=== PATIENT | female | born 1995 | race Caucasian/White ===

== ENCOUNTER 2017-02-10 08:00 | Outpatient (CLI) | payer MEDICAID | END 2017-02-10 08:01 | disposition home or self-care (01) | LOC: LAB.R 08:00 | PROVIDERS: ATTEND Podiatrist | DX: L03.032 Cellulitis of left toe (principal) | CPT/HCPCS: 87070; 87077; 87205 ==

== ENCOUNTER 2017-09-17 09:02 | Emergency (ER) | payer MEDICAID ==
[2017-09-17] MEDS ORDERED: IBUPROFEN 400 MG TABLET PO STA (09:20)
[2017-09-17] MEDS ORDERED: ACETAMINOPHEN 325 MG TABLET PO STA (09:20)
--- NOTE | 2017-09-17 09:21 | ED Physician Documentation ---
History of Present Illness - Stated complaint Stated Complaint: LT FT INJURY - Chief complaint Chief Complaint: Ext Problem - Additonal information Additional information: 21 f stepped off curb rolled ankle last night pain to medial L ankle cannot bear wt no other injury denies preg Review of Systems : denies: Now EGA Musculoskeletal: reports: Pain with weight bearing PD PAST MEDICAL HISTORY - Present Medications Home Medications: Ambulatory Orders Medication Instructions Recorded Confirmed Citalopram [CeleXA] 09/17/17 Norgestimate-Ethinyl Estradiol 09/17/17 [Tri-Sprintec Tablet] - Allergies Allergies/Adverse Reactions: Allergies Allergy/AdvReac Type Severity Reaction Status Date / Time No Known Drug Allergies Allergy Verified 09/17/17 09:07 PD ED PE NORMAL - Vitals Vital signs reviewed: Yes - Extremities Extremities: Other (LLE - no defmormity, prox tib fib NT, TTP medial mall and deltoid lig area, no mid foot TTP, + pule, MSV intact) Results - Vitals Vitals: Vital Signs - 24 hr 09/17/17 09:04 Temperature 36.3 C L Heart Rate 80 Respiratory 18 Rate Blood Pressure 131/78 H O2 Saturation 99 Oxygen O2 Source Room air - Rads (name of study) ankle Radiology: See rad report (normal) Departure - Departure Disposition: 01 Home, Self Care Clinical Impression: Medial ankle sprain Qualifiers: Encounter type: initial encounter Laterality: left Qualified Code(s): S93.422A - Sprain of deltoid ligament of left ankle, initial encounter Condition: Good Instructions: ED Sprain Ankle W X Ray Follow-Up: Marvin Baxter MD [Primary Care Provider] - Comments: Thankfully the xray does not show any fracture Recommend ice elevation and the HEMAL wrap to decrease any swelling Motrin and tylenol for the pain Use the crutches - no weight bearing - for a week. Then may advance weight bearing as tolerated. If the ankle is still to painful to bear weight in two weeks, please see your PMD for a recheck and perhaps further imaging (occasionally a hairline crack cannot be seen on initial xrays but will become more apparent on xray as it heals) Forms: Activity restrictions
--- NOTE | 2017-09-17 09:45 | XRAY Report ---
EXAM: LEFT ANKLE RADIOGRAPHY 3 VIEWS EXAM DATE: 09/17/2017. CLINICAL HISTORY: Pain. Denies injury. COMPARISON: AP, oblique and lateral. TECHNIQUE: 3 views. FINDINGS: Bones: Normal. No fractures or bone lesions. Joints: Normal. No effusion. No subluxations. The ankle mortise is normally aligned. Soft Tissues: Normal. No soft tissue swelling. IMPRESSION: Normal left ankle radiography. [facility] Referring Provider Line: [phone] SITE ID: [id number]
[2017-09-17 10:22] VITALS: BP 122/63
== END 2017-09-17 10:20 | disposition home or self-care (01) ==
LOC: ED 09:02
DX: S93.422A Sprain of deltoid ligament of left ankle, initial encounter (principal); X50.9XXA Other and unspecified overexertion or strenuous movements or postures, initial encounter; Y92.410 Unspecified street and highway as the place of occurrence of the external cause
CPT/HCPCS: 73610; 99283; A9270

== ENCOUNTER 2018-05-17 08:50 | Outpatient (CLI) | payer MEDICAID ==
[2018-05-17 11:27] LABS: THYROID STIMULATING HORMONE 1.98 uIU/mL (0.34-5.60)
[2018-05-17 11:29] LABS: FREE T4 (FREE THYROXINE) 0.69 ng/dL (0.58-1.64)
== END 2018-05-17 08:51 | disposition home or self-care (01) ==
LOC: LAB.F 08:50
PROVIDERS: ATTEND Physician Assistant Medical
DX: R23.2 Flushing (principal); R00.2 Palpitations; R94.6 Abnormal results of thyroid function studies; F41.9 Anxiety disorder, unspecified
CPT/HCPCS: 36415; 81599; 84439; 84443; 84480; 84481; 86376; 86800

== ENCOUNTER 2018-05-24 14:08 | Outpatient (CLI) | payer MEDICAID ==
[2018-05-26 17:41] LABS: THYROGLOBULIN 25.1 ng/mL
== END 2018-05-24 14:09 | disposition home or self-care (01) ==
LOC: LAB.F 14:08
PROVIDERS: ATTEND Physician Assistant Medical
DX: R94.6 Abnormal results of thyroid function studies (principal)
CPT/HCPCS: 36415; 84432; 86800

== ENCOUNTER 2018-06-28 11:16 | Outpatient (CLI) | payer MEDICAID ==
--- NOTE | 2018-06-28 14:57 | Ultrasound Report ---
Reason: ABNORMAL THYROID HORMONE,FLUSHING,PALPITATIONS Procedure Date: 06/28/2018 Accession Number: [id number] / [id number] Procedure: US - Head or Neck Soft Tissue CPT Code: FULL RESULT: EXAM: THYROID ULTRASOUND EXAM DATE: 06/28/2018 12:03 PM. CLINICAL HISTORY: Abnormal thyroid hormone, flushing, palpitations. COMPARISON: None. TECHNIQUE: Real time sonographic imaging of the thyroid was performed by the shell plater. Multiple plastic products sales representative static images were saved for review. FINDINGS: THYROID GLAND: Right Lobe: 1.9 x 1.4 x 4.5 cm, volume 6.2 cc. Normal background echotexture. Right Lobe Nodules: A small isoechoic nodule measuring up to 0.5 cm and a small partially cystic, partially solid nodule measuring up to 0.5 cm are noted. Left Lobe: 1.2 x 1.6 x 5.2 cm, volume 5.2 cc. Normal background echotexture. Left Lobe Nodules: 0.4 cm partially cystic, partially solid nodule is noted. Isthmus: 0.4 cm AP. Isthmic Nodules: None. LYMPH NODES: No adenopathy demonstrated in the central or lateral compartment. OTHER: None. IMPRESSION: Benign-appearing nodules measuring 0.5 cm or less. These nodules do not meet criteria for tissue sampling. Background thyroid parenchyma appears unremarkable. Management recommendations are based on 2015 [place] [employer] Management Guidelines for Adult Patients with Thyroid Nodules and Differentiated Thyroid Cancer. [facility]
== END 2018-06-28 11:17 | disposition home or self-care (01) ==
LOC: DI 11:16
PROVIDERS: ATTEND Physician Assistant Medical
DX: E04.2 Nontoxic multinodular goiter (principal)
CPT/HCPCS: 76536

== ENCOUNTER 2018-08-30 19:45 | Outpatient (CLI) | payer MEDICAID ==
--- NOTE | 2018-08-30 23:37 | Ultrasound Report ---
Reason: PELVIC PAIN Procedure Date: 08/30/2018 Accession Number: [id number] / [id number] Procedure: US - Pelvic w/Transvaginal CPT Code: FULL RESULT: EXAM: PELVIC ULTRASOUND EXAM DATE: 08/30/2018 08:13 PM. CLINICAL HISTORY: PELVIC PAIN. COMPARISON: None. TECHNIQUE: Realtime transabdominal pelvic scan performed to identify the uterus and adnexa and as an overview of other pelvic structures, followed by transvaginal scan to provide greater detail of the uterus and adnexa, with static image documentation. FINDINGS: Uterus: 8.4 x 4.9 x 3.6 cm, volume 77.5 cc. Retroverted position. Normal overall size and echotexture. Masses: None. Endometrium: 10 mm. No focal endometrial abnormalities Cervix: Unremarkable. Right Ovary: 2.5 x 1.2 x 2.4 cm, volume 3.8 cc. Normal echotexture and blood flow. Left Ovary: Simple appearing left adnexal 5.4 cm cyst is present, likely benign. Left ovary not definitively visualized. Free Fluid: None. Other: None. IMPRESSION: No acute sonographic abnormalities. [facility]
== END 2018-08-30 19:46 | disposition home or self-care (01) ==
LOC: DI 19:45
PROVIDERS: ATTEND Nurse Practitioner Obstetrics & Gynecology
DX: R10.2 Pelvic and perineal pain (principal)
CPT/HCPCS: 76830; 76856

== ENCOUNTER 2018-09-11 08:00 | Outpatient (CLI) | payer MEDICAID ==
[2018-09-11 18:32] LABS: HGB - HEMOGLOBIN 12.6 g/dL (12.0-16.0); MEAN CORPUSCULAR HGB CONC 32.7 g/dL (32.0-36.0); MEAN CORPUSCULAR VOLUME 91.7 fL (81.0-99.0); RED BLOOD COUNT 4.2 10^6/uL (4.20-5.40); RED CELL DISTRIBUTION WIDTH 13.6 % (12.0-15.0); WHITE BLOOD COUNT 8.2 x10^3/uL (4.8-10.8)
== END 2018-09-11 23:59 | disposition home or self-care (01) ==
LOC: LAB.N 08:00
PROVIDERS: ATTEND Nurse Practitioner Obstetrics & Gynecology
DX: R42 Dizziness and giddiness (principal)
CPT/HCPCS: 36415; 85025; 85027

== ENCOUNTER 2018-10-04 10:49 | Outpatient (CLI) | payer MEDICAID ==
--- NOTE | 2018-10-04 16:19 | XRAY Report ---
Reason: PAIN IN LEFT HAND Procedure Date: 10/04/2018 Accession Number: [id number] / [id number] Procedure: XR - Hand 2 View LT CPT Code: FULL RESULT: EXAM: LEFT HAND RADIOGRAPHY EXAM DATE: 10/04/2018 11:08 AM. CLINICAL HISTORY: PAIN IN LEFT HAND. COMPARISON: None. TECHNIQUE: 2 views. FINDINGS: Bones: No fractures or bone lesions. Joints: No subluxations. Soft Tissues: No soft tissue swelling. IMPRESSION: Normal left hand radiography. [facility]
== END 2018-10-04 10:50 | disposition home or self-care (01) ==
LOC: DI 10:49
PROVIDERS: ATTEND Internal Medicine
DX: M79.642 Pain in left hand (principal)

== ENCOUNTER 2018-10-11 10:24 | Outpatient (CLI) | payer MEDICAID | END 2018-10-11 10:25 | disposition home or self-care (01) | LOC: SC 10:24 | PROVIDERS: ATTEND Nurse Practitioner Family | DX: G47.10 Hypersomnia, unspecified (principal); G47.8 Other sleep disorders; R06.83 Snoring; R41.89 Other symptoms and signs involving cognitive functions and awareness; E66.9 Obesity, unspecified; Z68.38 Body mass index [BMI] 38.0-38.9, adult | CPT/HCPCS: 99203; 99212 ==

== ENCOUNTER 2018-10-25 19:30 | Outpatient (CLI) | payer MEDICAID | END 2018-10-25 23:59 | disposition home or self-care (01) | LOC: SC 19:30 | PROVIDERS: ATTEND Internal Medicine Pulmonary Disease | DX: G47.8 Other sleep disorders (principal) | CPT/HCPCS: 95806 ==

== ENCOUNTER 2018-11-22 13:56 | Outpatient (CLI) | payer MEDICAID | END 2018-11-22 13:57 | disposition home or self-care (01) | LOC: SC 13:56 | PROVIDERS: ATTEND Nurse Practitioner Family | DX: G47.10 Hypersomnia, unspecified (principal); F51.5 Nightmare disorder; R53.83 Other fatigue; F41.9 Anxiety disorder, unspecified | CPT/HCPCS: 99212; 99215 ==

== ENCOUNTER 2018-11-30 20:49 | Outpatient (CLI) | payer MEDICAID ==
--- NOTE | 2018-11-30 23:27 | Ultrasound Report ---
Reason: PELVIC PAIN Procedure Date: 11/30/2018 Accession Number: [id number] / [id number] Procedure: US - Pelvic w/Transvaginal CPT Code: FULL RESULT: EXAM: PELVIC ULTRASOUND EXAM DATE: 11/30/2018 09:21 PM. CLINICAL HISTORY: PELVIC PAIN. COMPARISON: PELVIC W/TRANSVAGINAL 08/30/2018 7:48 PM. TECHNIQUE: Realtime transabdominal pelvic scan performed to identify the uterus and adnexa and as an overview of other pelvic structures, followed by transvaginal scan to provide greater detail of the uterus and adnexa, with static image documentation. FINDINGS: Uterus: 7.8 x 5.6 x 3.5 cm, volume 80 cc. Anteverted position. Normal overall size and echotexture. Masses: None. Endometrium: 8 mm. Normal. Cervix: Unremarkable. Right Ovary: 3.2 x 2.2 x 2.2 cm, volume 8 cc. Normal echotexture and blood flow. Left Ovary: 1.5 x 1.4 x 1.2 cm, volume 1 cc. Normal echotexture and blood flow. Free Fluid: None. Other: None. IMPRESSION: Normal pelvic ultrasound. No sonographic evidence of polycystic ovaries. [facility]
== END 2018-11-30 20:50 | disposition home or self-care (01) ==
LOC: DI 20:49
PROVIDERS: ATTEND Nurse Practitioner Obstetrics & Gynecology
DX: R10.2 Pelvic and perineal pain (principal)
CPT/HCPCS: 76830; 76856

== ENCOUNTER 2019-05-07 17:45 | Emergency (ER) | payer MEDICAID ==
[2019-05-07 17:53] VITALS: BP 126/79
[2019-05-07] MEDS ORDERED: CYCLOBENZAPRINE 10 MG TABLET PO STA (18:09)
[2019-05-07] MEDS ORDERED: KETOROLAC 60 MG/2 ML VIAL IM STA (18:09)
--- NOTE | 2019-05-07 18:11 | ED Physician Documentation ---
History of Present Illness - Stated complaint Stated Complaint: LT SHOULDER PX - Chief complaint Chief Complaint: Ext Problem - History obtained from History obtained from: Patient - History of Present Illness Timing: Today Pain level max: 7 Pain level now: 6 Improved by: rest Worsened by: movement - Additonal information Additional information: L shoulder pain. no injury. worse with movement and better with rest. works retail and food and beverage associate. took motrin last night without relief. no meds today. no trauma. no numbness or tingling. Review of Systems Constitutional: denies: Fever, Chills Respiratory: denies: Cough GI: denies: Vomiting : denies: Now EGA Skin: denies: Rash Musculoskeletal: denies: Neck pain, Back pain Neurologic: denies: Headache PD PAST MEDICAL HISTORY - Past Medical History Past Medical History: Yes Psych: Anxiety, ADD/ADHD - Past Surgical History Past Surgical History: No - Present Medications Home Medications: Ambulatory Orders Medication Instructions Recorded Confirmed Citalopram [CeleXA] 09/17/17 Norgestimate-Ethinyl Estradiol 09/17/17 [Tri-Sprintec Tablet] Cyclobenzaprine [Flexeril] 10 mg PO TID PRN #20 tablet 05/07/19 Meloxicam [Mobic] 15 mg PO DAILY PRN #20 tablet 05/07/19 - Allergies Allergies/Adverse Reactions: Allergies Allergy/AdvReac Type Severity Reaction Status Date / Time No Known Drug Allergies Allergy Verified 09/17/17 09:07 - Social History Does the pt smoke?: No Smoking Status: Never smoker Does the pt drink ETOH?: No Does the pt have substance abuse?: No - Immunizations Immunizations are current?: Yes PD ED PE NORMAL - Vitals Vital signs reviewed: Yes - General General: Alert and oriented X 3, No acute distress, Well developed/nourished - HEENT HEENT: Moist mucous membranes - Neck Neck: Supple, no meningeal sign - Cardiac Cardiac: RRR, Strong equal pulses - Respiratory Respiratory: No respiratory distress, Clear bilaterally - Abdomen Abdomen: Soft, Non tender, Non distended - Back Back: No CVA TTP, No spinal TTP - Derm Derm: Warm and dry - Extremities Extremities: Other (Tender to palpation over the left trapezial ridge. Negative Spurling test. Normal shoulder examination. Full range of motion of the shoulder, passively without pain. Neurovascular intact including axillary nerve.) - Neuro Neuro: Alert and oriented X 3 - Psych Psych: Normal mood, Normal affect Results - Vitals Vitals: Vital Signs - 24 hr 05/07/19 17:52 Temperature 36.5 C Heart Rate 86 Respiratory 18 Rate Blood Pressure 126/79 O2 Saturation 100 Oxygen O2 Source Room air - Rads (name of study) L shoulder xray Radiology: Prelim report reviewed, EMP read contemporaneously, See rad report PD MEDICAL DECISION MAKING - ED course Complexity details: reviewed results, re-evaluated patient, considered differential, d/w patient ED course: Patient with a left trapezius muscle spasm. No acute findings on shoulder x- ray. Pain well controlled here. We will follow-up with her doctor for further care. Will place on muscle relaxants and anti-inflammatories for home. Encourage gentle stretching. Patient counseled regarding signs and symptoms for which I believe and urgent re-evaluation would be necessary. Patient with good understanding of and agreement to plan and is comfortable going home at this time This document was made in part using voice recognition software. While efforts are made to proofread this document, sound alike and grammatical errors may occur. Departure - Departure Disposition: 01 Home, Self Care Clinical Impression: Trapezius muscle spasm Condition: Good Instructions: ED Spasm Muscle Follow-Up: Apolonia Diana PA-C [Primary Care Provider] - Within 1 week Prescriptions: Cyclobenzaprine [Flexeril] 10 mg PO TID PRN #20 tablet PRN Reason: Spasms Meloxicam [Mobic] 15 mg PO DAILY PRN #20 tablet PRN Reason: pain Comments: Gently stretch the area. Return if you worsen. Ice and heat may help as well. Discharge Date/Time: 05/07/19 18:37
--- NOTE | 2019-05-07 18:47 | XRAY Report ---
Reason: L shoulder pain Procedure Date: 05/07/2019 Accession Number: [id number] / [id number] Procedure: XR - Shoulder 3 View LT CPT Code: FULL RESULT: EXAM: LEFT SHOULDER RADIOGRAPHY EXAM DATE: 05/07/2019 06:18 PM. CLINICAL HISTORY: Left shoulder pain. COMPARISON: None. TECHNIQUE: 3 views. FINDINGS: Bones: No acute fracture. No bone lesion evident. Joints: The glenohumeral and acromioclavicular joints are unremarkable without subluxation. Soft tissues: Unremarkable. IMPRESSION: Negative shoulder radiography. [facility]
== END 2019-05-07 18:37 | disposition home or self-care (01) ==
LOC: ED 17:45
DX: M62.838 Other muscle spasm (principal)
CPT/HCPCS: 73030; 96372; 99283; 99284; A9270

== ENCOUNTER 2019-06-01 10:18 | Outpatient (CLI) | payer MEDICAID ==
--- NOTE | 2019-06-03 01:44 | XRAY Report ---
Reason: KNEE PAIN,ACUTE Procedure Date: 06/01/2019 Accession Number: [id number] / [id number] Procedure: XR - Knee 3 View RT CPT Code: FULL RESULT: EXAM: RIGHT KNEE RADIOGRAPHY EXAM DATE: 06/01/2019 10:58 AM. CLINICAL HISTORY: KNEE PAIN,ACUTE. COMPARISON: None. TECHNIQUE: 3 views. FINDINGS: Bones: No acute fractures or suspicious bone lesions. Joints: No effusion. No subluxations. Soft Tissues: Unremarkable. IMPRESSION: Unremarkable knee radiography. [facility]
== END 2019-06-01 10:19 | disposition home or self-care (01) ==
LOC: DI 10:18
PROVIDERS: ATTEND Family Medicine
DX: M25.561 Pain in right knee (principal)

== ENCOUNTER 2020-02-28 10:19 | Outpatient (CLI) | payer MEDICAID ==
[2020-02-28 15:35] LABS: BASOPHILS % (AUTO) 0.3 %; EOSINOPHILS # (AUTO) 0.1 10^3/uL (0.0-0.7); EOSINOPHILS % (AUTO) 1.1 %; HGB - HEMOGLOBIN 12.9 g/dL (12.0-16.0); LYMPHOCYTES # (AUTO) 2.8 10^3/uL (1.5-3.5); LYMPHOCYTES % (AUTO) 28.6 %; MEAN CORPUSCULAR HEMOGLOBIN 29.7 pg (27.0-31.0); MEAN CORPUSCULAR HGB CONC 32.8 g/dL (32.0-36.0); MEAN CORPUSCULAR VOLUME 90.6 fL (81.0-99.0); MEAN PLATELET VOLUME 10.1 fL (7.9-10.8); MONOCYTES # (AUTO) 0.6 10^3/uL (0.0-1.0); MONOCYTES % (AUTO) 5.7 %; NEUTROPHILS # (AUTO) 6.3 10^3/uL (1.5-6.6); PLT - PLATELET COUNT 396 10^3/uL (130-450); RED BLOOD COUNT 4.34 10^6/uL (4.20-5.40); RED CELL DISTRIBUTION WIDTH 13.2 % (12.0-15.0); WHITE BLOOD COUNT 9.8 x10^3/uL (4.8-10.8)
[2020-02-28 16:04] LABS: ALBUMIN 4.3 g/dL (3.2-5.5); ALBUMIN/GLOBULIN RATIO 1.3 (1.0-2.2); ALKALINE PHOSPHATASE 44 IU/L (42-121); ALT ALANINE AMINOTRANSFERASE 18 IU/L (10-60); AST ASPARTATE AMINOTRANSFERASE 23 IU/L (10-42); BILIRUBIN,TOTAL < 0.2 mg/dL (0.2-1.0); BUN - BLOOD UREA NITROGEN 14 mg/dL (6-20); CALCIUM 9.4 mg/dL (8.5-10.3); CARBON DIOXIDE - CO2 26 mmol/L (21-32); CHLORIDE 105 mmol/L (101-111); CREATININE 0.7 mg/dL (0.4-1.0); GLUCOSE 109 mg/dL (70-100); SODIUM 138 mmol/L (135-145); TOTAL PROTEIN 7.7 g/dL (6.7-8.2)
== END 2020-02-28 10:20 | disposition home or self-care (01) ==
LOC: LAB.S 10:19
PROVIDERS: ATTEND Family Medicine
DX: R11.0 Nausea (principal)
CPT/HCPCS: 36415; 80053; 84702; 85025

== ENCOUNTER 2020-04-30 13:15 | Outpatient (CLI) | payer MEDICAID ==
[2020-04-30 21:05] LABS: CANDIDA GROUP DNA NEGATIVE (NEGATIVE); CANDIDA KRUSEI DNA NEGATIVE (NEGATIVE); TRICHOMONAS VAGINALIS DNA NEGATIVE (NEGATIVE)
== END 2020-04-30 23:59 | disposition home or self-care (01) ==
LOC: LAB.R 13:15
PROVIDERS: ATTEND Nurse Practitioner Obstetrics & Gynecology
DX: N89.8 Other specified noninflammatory disorders of vagina (principal)
CPT/HCPCS: 87661; 87801

== ENCOUNTER 2020-05-02 13:56 | Outpatient (CLI) | payer MEDICAID ==
[2020-05-02 20:49] LABS: THYROID STIMULATING HORMONE 2.4 uIU/mL (0.34-5.60)
[2020-05-02 20:51] LABS: FREE T4 (FREE THYROXINE) 0.82 ng/dL (0.58-1.64)
== END 2020-05-02 13:57 | disposition home or self-care (01) ==
LOC: LAB.S 13:56
PROVIDERS: ATTEND Internal Medicine
DX: E04.1 Nontoxic single thyroid nodule (principal)
CPT/HCPCS: 36415; 84439; 84443

== ENCOUNTER 2020-05-07 13:18 | Outpatient (CLI) | payer MEDICAID | END 2020-05-07 13:19 | disposition home or self-care (01) | LOC: RT 13:18 | PROVIDERS: ATTEND Registered Nurse | DX: R06.09 Other forms of dyspnea (principal) | CPT/HCPCS: 94010 ==

== ENCOUNTER 2020-05-15 19:15 | Outpatient (CLI) | payer MEDICAID ==
--- NOTE | 2020-05-16 10:30 | Ultrasound Report ---
PROCEDURE: Head or Neck Soft Tissue INDICATIONS: RIGHT THYROID NODULE TECHNIQUE: Real time scanning was performed of the neck region of interest, with image documentation . COMPARISON: None. FINDINGS: No soft tissue neck abnormality seen bilaterally IMPRESSION: PROCEDURE: Head or Neck Soft Tissue INDICATIONS: RIGHT THYROID NODULE TECHNIQUE: Real-time scanning was performed of the thyroid gland, with image documentation. COMPARISON: None FINDINGS: Right: Thyroid lobe measures 4.5 x 1.6 x 1.6 cm, and is homogeneous in echotexture. Left: Thyroid lobe measures 4.7 x 1.0 x 1.4 cm, and is homogenous in echotexture. Isthmus: 3 mm thick. Nodule number: One Location: Upper pole of the right lobe Size: 0.5 x 0.3 x 0.4 cm. Composition: Solid Echogenicity: Isoechoic Shape: wider than tall. Margins: Smooth Echogenic foci: None Total points: 3 ACR TI-RADS category: Mildly suspicious Nodule number: Two Location: Mid right lobe Size: 0.4 x 0.4 x 0.2 cm. Composition: Cystic Echogenicity: Hypoechoic Shape: wider than tall. Margins: Irregular Echogenic foci: None Total points: 4 ACR TI-RADS category: Moderately suspicious Nodule number: Three Location: Inferior pole left lobe Size: 0.5 x 0.3 x 0.3 cm. Composition: Cystic Echogenicity: Hypoechoic Shape: wider than tall. Margins: Irregular Echogenic foci: None Total points: 4 ACR TI-RADS category: Moderately suspicious IMPRESSION: Multiple subcentimeter bilateral thyroid lesions as detailed above. By consensus criteria, no ultraso und follow-up required. Reviewed by: Willy Christensen MD on 05/16/2020 10:29 AM PDT Approved by: Willy Christensen MD on 05/16/2020 10:29 AM PDT Station ID: [id number]
== END 2020-05-15 19:16 | disposition home or self-care (01) ==
LOC: DI 19:15
PROVIDERS: ATTEND Internal Medicine
DX: E04.2 Nontoxic multinodular goiter (principal)
CPT/HCPCS: 76536

== ENCOUNTER 2020-07-11 16:37 | Emergency (ER) | payer MEDICAID ==
[2020-07-11] MEDS ORDERED: HYDROcod/ACETAM 5/325 MG TABLET PO STA (16:56)
--- NOTE | 2020-07-11 16:57 | ED Physician Documentation ---
PD HPI BACK PAIN - Stated complaint Stated Complaint: UPPER BACK PX - Chief complaint Chief Complaint: Back Pain - History obtained from History obtained from: Patient - Additional information Additional information: For the last 2 days she has had severe seemingly muscular pain on the left upper back. It is worse if she bends or twists or uses the left arm. It is gotten worse at work because she has to lean a lot at work. There is no associated shortness of breath, fevers, or chest pain. Pain does get worse with deep breathing though. No possibility of . She has had similar muscular pains in other places in the past, but not in this particular location. Review of Systems Constitutional: reports: Reviewed and negative Eyes: reports: Reviewed and negative Ears: reports: Reviewed and negative Nose: reports: Reviewed and negative Throat: reports: Reviewed and negative Cardiac: reports: Reviewed and negative PD PAST MEDICAL HISTORY - Past Medical History Psych: Anxiety, ADD/ADHD - Past Surgical History Past Surgical History: No - Present Medications Home Medications: Ambulatory Orders Medication Instructions Recorded Confirmed Citalopram [CeleXA] 09/17/17 Norgestimate-Ethinyl Estradiol 09/17/17 [Tri-Sprintec Tablet] Cyclobenzaprine [Flexeril] 10 mg PO TID PRN #20 tablet 05/07/19 Meloxicam [Mobic] 15 mg PO DAILY PRN #20 tablet 05/07/19 HYDROcod/ACETAM 5/325 [Severance 5/325] 1 - 2 tab PO Q6H PRN #15 tablet 07/11/20 Lidocaine Patch 5% [Lidoderm Patch] 1 patch TOP DAILY PRN #10 patch 07/11/20 - Allergies Allergies/Adverse Reactions: Allergies Allergy/AdvReac Type Severity Reaction Status Date / Time No Known Drug Allergies Allergy Verified 07/11/20 16:45 - Social History Does the pt smoke?: No Smoking Status: Never smoker Does the pt drink ETOH?: No Does the pt have substance abuse?: No - Immunizations Immunizations are current?: Yes PD ED PE NORMAL - Vitals Vital signs reviewed: Yes - General General: Alert and oriented X 3, No acute distress - Neck Neck: Supple, no meningeal sign, No bony TTP - Cardiac Cardiac: RRR, No murmur - Respiratory Respiratory: No respiratory distress, Clear bilaterally - Abdomen Abdomen: Non tender - Back Back: No spinal TTP, Other (Muscular tenderness to the medial side of the left scapula) - Extremities Extremities: No edema, No calf tenderness / cord - Neuro Neuro: Alert and oriented X 3, Normal speech Results - Vitals Vitals: Vital Signs - 24 hr 07/11/20 07/11/20 16:41 17:33 Temperature 36.5 C 36.9 C Heart Rate 81 81 Respiratory 18 18 Rate Blood Pressure 153/99 H 124/95 H O2 Saturation 99 99 Oxygen O2 Source Room air - Rads (name of study) 2v chest Radiology: EMP read contemporaneously (NAD) PD MEDICAL DECISION MAKING - ED course ED course: 24-year-old woman with what seems like muscular back pain, that is reproducible with motion. No shortness of breath or other symptoms to suggest PE. Departure - Departure Disposition: 01 Home, Self Care Clinical Impression: Back pain Qualifiers: Back pain location: thoracic back pain Chronicity: acute Back pain laterality: left Qualified Code(s): M54.6 - Pain in thoracic spine Condition: Good Record reviewed to determine appropriate education?: Yes Instructions: ED Neck Back Pain General Prescriptions: Lidocaine Patch 5% [Lidoderm Patch] 1 patch TOP DAILY PRN #10 patch PRN Reason: pain HYDROcod/ACETAM 5/325 [Severance 5/325] 1 - 2 tab PO Q6H PRN #15 tablet PRN Reason: Pain Comments: Follow-up with your doctor early next week if not better, return for new or worsening symptoms. Forms: Activity restrictions Discharge Date/Time: 07/11/20 17:36
--- NOTE | 2020-07-11 17:21 | XRAY Report ---
PROCEDURE: Chest 2 View X-Ray INDICATIONS: back pain TECHNIQUE: 2 view(s) of the chest. COMPARISON: None. FINDINGS: Surgical changes and devices: None. Lungs and pleura: No pleural effusions or pneumothorax. Lungs are clear. Mediastinum: Mediastinal contours are normal. Heart size is normal. Bones and chest wall: No suspicious bony abnormalities. Soft tissues appear unremarkable. IMPRESSION: Normal for age, source of current symptoms is not seen. The current examination does not raise concern for presence of aneurysm. No source of back pain is found, and depending on the clinic al status follow-up CT scanning or MR scanning may become necessary. Reviewed by: Julio Lindquist MD on 07/11/2020 5:19 PM PST Approved by: Julio Lindquist MD on 07/11/2020 5:19 PM PST Station ID: [id number]
[2020-07-11 17:34] VITALS: BP 124/95
== END 2020-07-11 17:36 | disposition home or self-care (01) ==
LOC: ED 16:37
DX: M54.6 Pain in thoracic spine (principal)
CPT/HCPCS: 71046; 99283; 99284; A9270

== ENCOUNTER 2021-06-05 18:47 | Outpatient (CLI) | payer MEDICAID ==
--- NOTE | 2021-06-06 11:28 | Ultrasound Report ---
PROCEDURE: Pelvic w/Transvaginal INDICATIONS: PELVIC PAIN, POLYCYSTIC OVARIAN SYNDROME TECHNIQUE: Real-time scanning was performed of the pelvic organs, with image documentation. Additional endovagi nal scanning was necessary due to incomplete visualization of the adnexal and endometrial structures by transabdominal scanning. COMPARISON: None. FINDINGS: No pathologic free abdominal or pelvic fluid. Uterus: Uterus is normal in size at 7.6 x 3.5 x 5.6 cm. The endometrium measures 10.4 mm in combine d thickness. There is a small amount of endometrial pain and endocervical fluid. No suspicious mass. Questionable arcuate configuration noted by the technologist. Ovaries: Suboptimally visualized. The right ovary measures a volume of 9.8 cc. There are a few physi ologic follicles. Left ovary is likely noted measuring 4.7 cc in volume. No suspicious cystic or kobe d mass. IMPRESSION: Trace amount of endometrial and endocervical fluid. Questionable arcuate configuration noted by the t echnologist, otherwise unremarkable in appearance. Limited evaluation of the normal-sized ovaries without sonographic evidence for PCOS. Reviewed by: Gustavo Medley DO on 06/06/2021 10:27 AM [facility] Approved by: Gustavo Medley DO on 06/06/2021 10:27 AM [facility] Station ID: [id number]
== END 2021-06-05 18:48 | disposition home or self-care (01) ==
LOC: DI 18:47
PROVIDERS: ATTEND Obstetrics & Gynecology
DX: R10.2 Pelvic and perineal pain (principal); E28.2 Polycystic ovarian syndrome; R93.89 Abnormal findings on diagnostic imaging of other specified body structures

== ENCOUNTER 2021-11-19 18:20 | Emergency (ER) | payer MEDICAID ==
[2021-11-19 18:30] VITALS: BP 159/106
--- NOTE | 2021-11-19 18:34 | ED Physician Documentation ---
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 really increased pain yesterday at work.). No: Fall, Twist Where injury occurred: Work Timing - onset: How many days ago (several days of mild pain with use, that increased significantly since yesterday when worked casino cashier position.) Worsened by: Moving (opposition to little finger with thumb, OK sign with index finger. abduction of thumb against resistance. No redness, rash nor swelling of thumb base. Tender into thenar muscle to wrist.), Palpating Associated symptoms: No: Weakness, Numbness, Swelling Similar symptoms before: Has not had sx before Recently seen: Not recently seen Review of Systems Constitutional: denies: Fever, Chills Skin: denies: Rash, Lesions Neurologic: denies: Focal weakness, Numbness PD PAST MEDICAL HISTORY - Past Medical History Cardiovascular: None Respiratory: None Psych: Anxiety, ADD/ADHD Musculoskeletal: None - Past Surgical History Past Surgical History: No - Present Medications Home Medications: Ambulatory Orders Medication Instructions Recorded Confirmed Norgestimate-Ethinyl Estradiol 09/17/17 [Tri-Sprintec Tablet] HYDROcod/ACETAM 5/325 [[place] 5/325] 1 ea PO Q6H PRN #14 tablet 11/19/21 Ibuprofen [Motrin] 600 mg PO TID PRN #25 tab 11/19/21 Methylphenidate HCl [Ritalin LA] 20 mg PO 11/19/21 Venlafaxine ER [Effexor ER] 37.5 mg PO 11/19/21 Venlafaxine HCl 75 mg PO 11/19/21 - Allergies Allergies/Adverse Reactions: Allergies Allergy/AdvReac Type Severity Reaction Status Date / Time No Known Drug Allergies Allergy Verified 11/19/21 18:25 - Social History Does the pt smoke?: No Smoking Status: Never smoker Does the pt drink ETOH?: No Does the pt have substance abuse?: No - Immunizations Immunizations are current?: Yes - POLST Patient has POLST: No PD ED PE NORMAL - Vitals Vital signs reviewed: Yes - General General: Alert and oriented X 3, Well developed/nourished, Other (guarding ROM of left thumb due to sordal pain. ) - Derm Derm: Normal color, Warm and dry, No rash - Extremities Extremities: Other (left thumb base as well as palmar then area with muscle tenderness. No skin tender nor lesions. Pain with opposition against resistance to radial lateral and opposition. ) - Neuro Neuro: Alert and oriented X 3, No motor deficit, No sensory deficit, Normal speech Results - Vitals Vitals: Vital Signs - 24 hr 11/19/21 18:28 Temperature 36.4 C L Heart Rate 95 Respiratory 18 Rate Blood Pressure 159/106 H O2 Saturation 99 Oxygen O2 Source Room air - Rads (name of study) left thumb Radiology: Prelim report reviewed (no bony lesions. ), See rad report PD MEDICAL DECISION MAKING - ED course Complexity details: considered differential (seens tendontis of abductor pollicis (rather than extensor).), d/w patient Departure - Departure Disposition: 01 Home, Self Care Clinical Impression: Thumb tendonitis Condition: Stable Record reviewed to determine appropriate education?: Yes Instructions: Tendonitis and Tenosynovitis Prescriptions: Ibuprofen [Motrin] 600 mg PO TID PRN #25 tab PRN Reason: Pain HYDROcod/ACETAM 5/325 [[place] 5/325] 1 ea PO Q6H PRN #14 tablet PRN Reason: Pain Comments: Use the thumb splint to protect motion of the thumb and wrist for the next 7 to 10 days. He can have it off briefly for rest. Have it on with any activity. Light use of the left hand for the next week or so. I would suggest ibuprofen 600 mg 2-3 times daily regularly for the next 7 days. To that add Tylenol every 4-6 hours if needed for pain. In the short-term you can use hydrocodone every 6 hours if needed for worse pain. I would not anticipate needing that beyond the first couple of days. Follow-up with your primary care or orthopedics if not well improved over the next week or if recurrent episodes in the near future. Other treatments can be done if this above is not successful. I transmitted your prescription to [facility] in [place]. I am prescribing a short course of narcotic pain medication for you. These are potentially dangerous and addictive medications that should be used carefully. These medications may constipate you. Take an imdz-moq-[id number] stool softener such as docusate twice daily with plenty of water while taking these medications. If you go 24 hours without a bowel movement, take inwz-vta-[id number] MiraLAX, per package instructions. Do not drink or drive while taking these medications. If you received narcotic or sedating medications while in the emergency department do not drive for 24 hours. Store this medication in a safe, secure place and out of reach of children. It is a violation of federal law to give or sell this medication to another person or to use in a manner other than prescribed. The ED will not refill narcotic prescriptions, including prescriptions lost or stolen. You can dispose of unwanted medications at the [facility]'s office or at several pharmacies such as [facility]. Forms: Activity restrictions Discharge Date/Time: 11/19/21 19:35
[2021-11-19] MEDS ORDERED: IBUPROFEN 600 MG TABLET PO STA (18:52)
[2021-11-19] MEDS ORDERED: HYDROcod/ACETAM 5/325 MG TABLET PO STA (18:52)
--- NOTE | 2021-11-19 19:34 | XRAY Report ---
PROCEDURE: Wrist 4 View LT INDICATIONS: thumb pain with movement TECHNIQUE: 4 views of the wrist were acquired. COMPARISON: None FINDINGS: Bones: No fractures or dislocations. No suspicious bony lesions. Scaphoid view: Scaphoid appears intact. Scapholunate interval is maintained. Soft tissues: No suspicious soft tissue calcifications. IMPRESSION: Left wrist without acute fracture or dislocation. If there is continued clinical concern for pathology or occult fracture, consider follow-up imaging w ith repeat radiographs in 10-14 days and possible advanced imaging (CT, MRI, bone scan) if symptoms p ersist. Reviewed by: Mason Abdul MD on 11/19/2021 7:33 PM PDT Approved by: Mason Abdul MD on 11/19/2021 7:33 PM PDT Station ID: [id number]
== END 2021-11-19 19:35 | disposition home or self-care (01) ==
LOC: ED 18:20
DX: M77.8 Other enthesopathies, not elsewhere classified (principal)
CPT/HCPCS: 73110; 99283; A9270

== ENCOUNTER 2022-01-15 21:59 | Emergency (ER) | payer MEDICAID ==
[2022-01-15 22:35] LABS: BILIRUBIN,URINE NEGATIVE (NEGATIVE); GLUCOSE, URINE (UA) NEGATIVE (NEGATIVE); KETONES,URINE (UA) NEGATIVE (NEGATIVE); LEUKOCYTE ESTERASE, URINE NEGATIVE (NEGATIVE); NITRITE,URINE NEGATIVE (NEGATIVE); OCCULT BLOOD,URINE SMALL (NEGATIVE); PH,URINE 5.5 PH (5.0-7.5); PROTEIN,URINE NEGATIVE (NEGATIVE); UROBILINOGEN,URINE 0.2 (NORMAL) E.U./dL (NORMAL)
[2022-01-15 22:38] LABS: CLARITY,URINE HAZY (CLEAR); HCG UR QUAL NEGATIVE
[2022-01-15 22:50] LABS: BACTERIA,URINE Few /HPF (None Seen); SQUAMOUS EPITHELIAL CELL,UR MOD Squamous (<= Few); WBC,URINE 0-3 /HPF (0-5)
--- NOTE | 2022-01-16 00:09 | CT Report ---
PROCEDURE: Abdomen/Pelvis WO INDICATIONS: L flank pain TECHNIQUE: Noncontrast 5 mm thick sections acquired from the diaphragms to the symphysis. 5 mm coronal and sagi ttal reformats were then performed. For radiation dose reduction, the following was used: automated exposure control, adjustment of mA and/or kV according to patient size. COMPARISON: Pelvic ultrasound dated 06/05/2021, 11/30/2018 and 08/30/2018. FINDINGS: Image quality: Excellent. ABDOMEN: Lung bases: Lung bases are clear. Heart size is normal. Solid organs: Liver and spleen are normal in size. Moderate hepatic steatosis is seen. Gallbladder i s within normal limits Pancreas is normal in contours. No adrenal nodules. Kidneys are normal in s ize, without hydronephrosis or nephrolithiasis. No hydroureter Peritoneum and bowel: Unenhanced bowel loops demonstrate normal wall thickness and caliber. No free fluid or air. Appendix is visualized and is within normal limits. Mild fecal stasis in the colon is noted. Nodes and vessels: No retroperitoneal or mesenteric adenopathy by size criteria. Small right mesent marques lymph nodes are seen which can be seen associated with clinical diagnoses of mesenteric adenitis . The largest lymph node is seen measures 6 mm in short axis diameter series 3 image 90. Aorta and in ferior vena cava are normal in caliber. Miscellaneous: Small umbilical hernia is seen containing fat only. PELVIS: Genitourinary: Bladder wall thickness is normal. Miscellaneous: No inguinal hernias or adenopathy. Bones: No suspicious bony lesions. No vertebral body compression fractures. IMPRESSION: 1. No stones or hydronephrosis. No hydroureter. Normal-appearing urinary bladder. 2. No bowel obstruction or abnormal bowel wall thickening. Normal appendix. No free fluid of free air . Mild constipation. 3. Subcentimeter lymph nodes in right abdominal mesentery which can be seen associated with clinical diagnosis of mesenteric adenitis. Reviewed by: Kuldip Fry MD on 01/16/2022 12:12 AM PDT Approved by: Kuldip Fry MD on 01/16/2022 12:12 AM PDT Station ID: [id number]
--- NOTE | 2022-01-16 00:33 | ED Physician Documentation ---
History of Present Illness - Stated complaint Stated Complaint: LT ABD PX - Chief complaint Chief Complaint: Abd Pain - History obtained from History obtained from: Patient - History of Present Illness Timing: Today - Additonal information Additional information: 26-year-old Grace nix has had a prior history of kidney stones and she has some pain in her left back that seems like it is worse when she moves. She is associating this with a kidney stone. She comes into the emergency department with a chief complaint of left flank pain. Review of Systems Constitutional: denies: Fever Ears: denies: Ear pain Nose: denies: Congestion Throat: denies: Sore throat Respiratory: denies: Cough GI: reports: Abdominal Pain. denies: Nausea, Vomiting : denies: Dysuria, Frequency PD PAST MEDICAL HISTORY - Past Medical History Cardiovascular: None Respiratory: None Psych: Anxiety, ADD/ADHD Musculoskeletal: None - Past Surgical History Past Surgical History: No - Present Medications Home Medications: Ambulatory Orders Medication Instructions Recorded Confirmed Norgestimate-Ethinyl Estradiol 1 tab PO DAILY 09/17/17 01/15/22 [Tri-Sprintec Tablet] Methylphenidate HCl [Ritalin LA] 20 mg PO DAILY 11/19/21 01/15/22 Venlafaxine ER [Effexor ER] 37.5 mg PO DAILY 11/19/21 01/15/22 - Allergies Allergies/Adverse Reactions: Allergies Allergy/AdvReac Type Severity Reaction Status Date / Time No Known Drug Allergies Allergy Verified 11/19/21 18:25 - Social History Does the pt smoke?: No Smoking Status: Never smoker Does the pt drink ETOH?: No Does the pt have substance abuse?: No - Immunizations Immunizations are current?: Yes - POLST Patient has POLST: No PD ED PE NORMAL - Vitals Vital signs reviewed: Yes (Tachycardic and hypertensive) - General General: Alert and oriented X 3, No acute distress, Well developed/nourished - HEENT HEENT: Atraumatic, PERRL, EOMI - Neck Neck: Supple, no meningeal sign, No bony TTP - Cardiac Cardiac: RRR, No murmur - Respiratory Respiratory: No respiratory distress, Clear bilaterally - Abdomen Abdomen: Normal bowel sounds, Soft, Non tender, Non distended, No organomegaly - Back Back: No CVA TTP, No spinal TTP, Other (There is specific point tenderness to the left back in the paraspinous muscle at the costal margin. This is not specifically where the kidney is on sonographic palpation.) - Derm Derm: Normal color, Warm and dry, No rash - Extremities Extremities: No deformity, No edema - Neuro Neuro: Alert and oriented X 3, suspender maker 2-12 intact, No motor deficit, No sensory deficit, Normal speech Eye Opening: Spontaneous Motor: Obeys Commands Verbal: Oriented GCS Score: 15 - Psych Psych: Normal mood, Normal affect Results - Vitals Vitals: Vital Signs - 24 hr 01/15/22 01/16/22 22:05 00:08 Temperature 36.3 C L 37.1 C Heart Rate 102 H 62 Respiratory 20 20 Rate Blood Pressure 146/105 H 104/62 O2 Saturation 97 98 Oxygen O2 Source Room air - Labs Labs: Laboratory Tests 01/15/22 01/15/22 22:25 22:25 Urine Color YELLOW Urine Clarity HAZY Urine pH 5.5 Ur Specific [place] >=1.030 H Urine Protein NEGATIVE Urine Glucose (UA) NEGATIVE Urine Ketones NEGATIVE Urine Occult Blood SMALL H Urine Nitrite NEGATIVE Urine Bilirubin NEGATIVE Urine Urobilinogen 0.2 (NORMAL) Ur Leukocyte Esterase NEGATIVE Urine RBC 6-10 H Urine WBC 0-3 Ur Squamous Epith Cells MOD Squamous H Urine Bacteria Few Ur Microscopic Review INDICATED Urine Culture Comments NOT INDICATED Urine HCG, Qual NEGATIVE Procedures - Bedside sono Bedside sono by EMP: With use of bedside ultrasound the left kidney is imaged there is no evidence of obvious hydronephrosis and the kidney itself is sonographically nontender. PD MEDICAL DECISION MAKING - ED course Complexity details: reviewed old records, reviewed results, re-evaluated patient, considered differential, d/w patient ED course: 26-year-old female with pain in her back thinking she might have a kidney stone appears to have a musculoskeletal injury. Departure - Departure Disposition: 01 Home, Self Care Clinical Impression: Acute lumbar myofascial strain Qualifiers: Encounter type: initial encounter Qualified Code(s): S39.012A - Strain of muscle, fascia and tendon of lower back, initial encounter Condition: Stable Instructions: ED Sprain Strain Lumbar Follow-Up: Apolonia Diana PA-C [Provider Admit Priv/Credential] - Comments: Grace, today we did not find evidence of a kidney stone or abnormality to the urine with the exception of some blood. Pain with movement likely a strain of your back and the expectation is resolution within 2 to 5 days. Ibuprofen or Tylenol for pain. Ice and stretch the area. I have given you a note for work if you need to take some time off do it. Forms: Activity restrictions Discharge Date/Time: 01/16/22 01:13
[2022-01-16 01:13] VITALS: BP 104/62
== END 2022-01-16 01:13 | disposition home or self-care (01) ==
LOC: ED 21:59
DX: S39.012A Strain of muscle, fascia and tendon of lower back, initial encounter (principal); X58.XXXA Exposure to other specified factors, initial encounter
CPT/HCPCS: 81001; 81003; 81025; 87086; 99282; 99284

== ENCOUNTER 2022-09-09 08:52 | Outpatient (CLI) | payer MEDICAID ==
[2022-09-09 15:09] LABS: ESTIMATED AVERAGE GLUCOSE 108 mg/dL (70-100); HEMOGLOBIN A1c% 5.4 % (4.27-6.07)
[2022-09-09 16:07] LABS: THYROID STIMULATING HORMONE 2.04 uIU/mL (0.34-5.60)
[2022-09-09 16:09] LABS: FREE T4 (FREE THYROXINE) 0.89 ng/dL (0.58-1.64)
== END 2022-09-09 08:53 | disposition home or self-care (01) ==
LOC: LAB.S 08:52
PROVIDERS: ATTEND Registered Nurse
DX: E66.9 Obesity, unspecified (principal)
CPT/HCPCS: 36415; 83036; 84439; 84443

== ENCOUNTER 2022-11-02 16:17 | Outpatient (CLI) | payer MEDICAID ==
--- NOTE | 2022-11-02 21:47 | XRAY Report ---
PROCEDURE: Ankle 3 View RT INDICATIONS: SPRAIN OF RIGHT ANKLE TECHNIQUE: 4 views of the ankle were acquired. COMPARISON: None FINDINGS: Bones: No fractures or dislocations. Ankle mortise is normally aligned. No suspicious bony lesions . Soft tissues: No tibiotalar joint effusion. Achilles tendon appears normal. IMPRESSION: Right ankle without acute fracture or dislocation. If there is continued clinical concern for pathology or occult fracture, consider follow-up imaging w ith repeat radiographs in 10-14 days and possible advanced imaging (CT, MRI, bone scan) if symptoms p ersist. Reviewed by: Mason Abdul MD on 11/02/2022 8:45 PM ZOFIA Approved by: Mason Abdul MD on 11/02/2022 8:45 PM AKLETHA Station ID: [id number]
== END 2022-11-02 16:19 | disposition home or self-care (01) ==
LOC: DI.S 16:17
PROVIDERS: ATTEND Emergency Medicine
DX: S93.491A Sprain of other ligament of right ankle, initial encounter (principal)

== ENCOUNTER 2023-11-30 19:25 | Outpatient (CLI) | payer OTHER ==
--- NOTE | 2023-12-01 11:11 | Ultrasound Report ---
PROCEDURE: Pelvic w/Transvaginal INDICATIONS: PELVIC PAIN TECHNIQUE: Real-time scanning was performed of the pelvic organs, with image documentation. Additional endovagi nal scanning was necessary due to incomplete visualization of the adnexal and endometrial structures by transabdominal scanning. COMPARISON: CT 01/15/2022. FINDINGS: Uterus: Uterus is anteverted and normal in size at 8.4 x 3.8 x 5.6 cm. The myometrium is homogeneou s. The endometrium measures 14 mm in combined thickness. Ovaries: The right ovary measures 3.8 x 2.8 x 2.5 cm, with a calculated ovarian volume of 14 cc. Th e left ovary measures 2.4 x 1.3 x 1.8 cm, with a calculated ovarian volume of 3 cc. The ovaries have a normal sonographic appearance. Dominant bilateral ovarian follicles with a simple appearance. Les s than 12 follicles can be seen in each ovary. No adnexal masses are seen. No cystic lesions measuri ng greater than 3 cm. Other: No pathologic free abdominal or pelvic fluid. IMPRESSION: Unremarkable pelvic ultrasound. Reviewed by: Amanuel Hernandez MD on 12/01/2023 11:10 AM PDT Approved by: Amanuel Hernandez MD on 12/01/2023 11:10 AM PDT Station ID: [id number]
== END 2023-11-30 19:26 | disposition home or self-care (01) ==
LOC: DI 19:25
PROVIDERS: ATTEND Nurse Practitioner
DX: R10.2 Pelvic and perineal pain (principal)

== ENCOUNTER 2024-04-13 12:55 | Outpatient (CLI) | payer OTHER ==
[2024-04-13 19:45] LABS: BASOPHILS % (AUTO) 0.3 %; EOSINOPHILS # (AUTO) 0.1 10^3/uL (0.0-0.7); EOSINOPHILS % (AUTO) 1.1 %; HCT - HEMATOCRIT 43.7 % (37.0-47.0); HGB - HEMOGLOBIN 13.8 g/dL (12.0-16.0); LYMPHOCYTES # (AUTO) 3.9 10^3/uL (1.5-3.5); LYMPHOCYTES % (AUTO) 36.4 %; MEAN CORPUSCULAR HEMOGLOBIN 29.8 pg (27.0-31.0); MEAN CORPUSCULAR HGB CONC 31.6 g/dL (32.0-36.0); MEAN CORPUSCULAR VOLUME 94.4 fL (81.0-99.0); MONOCYTES # (AUTO) 0.6 10^3/uL (0.0-1.0); MONOCYTES % (AUTO) 5.5 %; NEUTROPHILS % (AUTO) 56.5 %; PLT - PLATELET COUNT 458 10^3/uL (130-450); RED BLOOD COUNT 4.63 10^6/uL (4.20-5.40); RED CELL DISTRIBUTION WIDTH 12.7 % (12.0-15.0); WHITE BLOOD COUNT 10.7 x10^3/uL (4.8-10.8)
[2024-04-13 20:06] LABS: ALBUMIN 4.3 g/dL (3.2-5.5); ALBUMIN/GLOBULIN RATIO 1.2 (1.0-2.2); ALKALINE PHOSPHATASE 50 IU/L (42-121); ALT ALANINE AMINOTRANSFERASE 13 IU/L (10-60); AST ASPARTATE AMINOTRANSFERASE 17 IU/L (10-42); BILIRUBIN,TOTAL 0.4 mg/dL (0.2-1.0); BUN - BLOOD UREA NITROGEN 13 mg/dL (6-20); CALCIUM 9.4 mg/dL (8.5-10.3); CARBON DIOXIDE - CO2 21 mmol/L (21-32); CHLORIDE 105 mmol/L (101-111); CHOL/HDL RATIO 3.5 (<4.4); CHOLESTEROL 221 mg/dL; CREATININE 0.6 mg/dL (0.6-1.3); GFR - MDRD 118 (>89); GLUCOSE 74 mg/dL (74-104); HDL CHOLESTEROL 63 mg/dL; LDL CHOLESTEROL,CALCULATED 114 mg/dL; LDL/HDL RATIO 1.8 (<4.4); POTASSIUM 4.1 mmol/L (3.5-4.5); SODIUM 135 mmol/L (135-145); TOTAL PROTEIN 7.9 g/dL (6.4-8.9); TRIGLYCERIDES 220 mg/dL; VLDL CHOLESTEROL 44 mg/dL
[2024-04-13 20:13] LABS: THYROID STIMULATING HORMONE 2.01 uIU/mL (0.34-5.60)
== END 2024-04-13 12:56 | disposition home or self-care (01) ==
LOC: LAB.S 12:55
PROVIDERS: ATTEND Registered Nurse
DX: R21 Rash and other nonspecific skin eruption (principal); Z13.228 Encounter for screening for other metabolic disorders; Z13.220 Encounter for screening for lipoid disorders; Z13.29 Encounter for screening for other suspected endocrine disorder; Z13.0 Encounter for screening for diseases of the blood and blood-forming organs and certain disorders involving the immune mechanism
CPT/HCPCS: 36415; 80053; 80061; 83721; 84443; 85025; 85598; 85613; 85732